=== PATIENT | female | born 1945 | race Caucasian/White ===

== ENCOUNTER 2016-03-29 07:30 | Inpatient (IN) | payer OTHER, MEDICARE ==
[~2016-03-29] VITALS: Ht 160 cm; Wt 51.0 kg
[~2016-03-29 07:30] MED LIST: ATOR10TA23; RISE150T3
[2016-04-09 09:02] VITALS: BMI 20.1
[2016-04-10] VITALS (22 sets, daily range): BP systolic 115–163; BP diastolic 59–82; PULSE 58–86; RESP 12–22; Ht 160 cm; Wt 51.0 kg
[2016-04-10] MEDS ORDERED: CEFAZOLIN 2 GM/50 ML (PMX) 50 ML IVPB SCH (06:30)
[2016-04-10] MEDS ORDERED: CEFAZOLIN 1 GM INJ ONE (07:00)
[2016-04-10] MEDS ORDERED: MAGN400T38 PO (07:15)
[2016-04-10] MEDS ORDERED: ASPI81TA3 PO (07:15)
[2016-04-10] MEDS ORDERED: RISE150T3 PO (07:16)
[2016-04-10] MEDS: LACTATED RINGER'S 1,000 ML IV* SCH ×2 (07:30→14:31)
[2016-04-10] MEDS ORDERED: MIDAZOLAM 1 MG/ML 2 ML INJ ONE (07:43)
[2016-04-10] MEDS ORDERED: FENTAnyl 50 MCG/ML VIAL IV PRN (09:00)
[2016-04-10] MEDS ORDERED: MEPERIDINE 25 MG INJ IV PRN (09:00)
[2016-04-10] MEDS ORDERED: hydrALAzine 20 MG INJ IV PRN (09:00)
[2016-04-10] MEDS ORDERED: DIPHENHYDRAMINE 50 MG INJ IV PRN (09:00)
[2016-04-10] MEDS ORDERED: ONDANSETRON 4 MG INJ IV PRN (09:00)
[2016-04-10] MEDS ORDERED: HYDROmorphONE (0.2 MG/ML) 10ML SYG IV PRN (09:00)
[2016-04-10] MEDS ORDERED: GLYCOPYRROLATE 0.4 MG INJ ONE (09:03)
[2016-04-10] MEDS ORDERED: LIDOCAINE 2% (SDV) 5 ML INJ ONE (09:03)
[2016-04-10] MEDS ORDERED: NEOSTIGMINE 3 MG/3 ML SYRINGE ONE (09:03)
[2016-04-10] MEDS ORDERED: ROCURONIUM 50 MG INJ ONE (09:03)
[2016-04-10] MEDS ORDERED: PROPOFOL 20 ML ONE (09:03)
[2016-04-10] MEDS ORDERED: ONDANSETRON 4 MG INJ ONE (09:04)
[2016-04-10] MEDS: HYDROmorphONE (0.2 MG/ML) 10ML SYG IV PRN ×2 (09:46→09:59)
[2016-04-10] MEDS ORDERED: OXYCODONE/ACETAMINOPHEN (5/325) TAB PO PRN (11:30)
[2016-04-10] MEDS ORDERED: HYDROmorphONE 1 MG/ML SYG IV PRN (11:30)
[2016-04-10] MEDS: IBUPROFEN 600 MG TAB PO SCH ×3 (12:00→23:21)
[2016-04-10] MEDS: LACTATED RINGER'S 1,000 ML IV SCH ×2 (12:11→20:42)
[2016-04-10] MEDS: ONDANSETRON 4 MG INJ IV PRN ×2 (12:11→17:59)
[2016-04-10] MEDS: FAMOTIDINE 20 MG INJ IV SCH ×2 (15:32→15:33)
[2016-04-10] MEDS ORDERED: PANTOPRAZOLE (EC) 40 MG TAB PO ONE (18:30)
[2016-04-10] MEDS ORDERED: ZOLPIDEM 5 MG TAB PO PRN (18:30)
[2016-04-10] MEDS ORDERED: ACETAMINOPHEN 325 MG TAB PO PRN (18:30)
[2016-04-10] MEDS ORDERED: METOCLOPRAMIDE 10 MG INJ IV PRN (18:30)
[2016-04-10] MEDS ORDERED: FAMOTIDINE 20 MG INJ IV SCH (21:00)
--- NOTE | 2016-04-10 21:27 | HPN ---
Date/Time of Note Date/Time of Note DATE: 04/10/16 TIME: 21:27 Interval H&P Admission Note Pt. seen H&P reviewed: No system changes KINGSLEY KAUR MD Apr 10, 2016 21:27
--- NOTE | 2016-04-10 21:31 | HPN ---
Date/Time of Note Date/Time of Note DATE: 04/10/16 TIME: 21:31 Interval H&P Admission Note Pt. seen H&P reviewed: No system changes KINGSLEY KAUR MD Apr 10, 2016 21:31
--- NOTE | 2016-04-10 21:56 | HP ---
Date/Time of Note Date/Time of Note DATE: 04/10/16 TIME: 21:31 Assessment/Plan VTE Prophylaxis VTE Prophylaxis Intervention: ambulation Lines/Catheters IV Catheter Type (from [facility]): Peripheral IV Urinary Cath still in place: Yes Reason Cath still needed: urinary retention Assessment/Plan Chief Complaint/Hosp Course rt ovarian cyst with pelvic discomfort Problems: Assessment/Plan bilateral salphingoophorectomy HPI/ROS Admit Date/Time Admit Date/Time Apr 10, 2016 at 05:32 Hx of Present Illness 71 y.o who has been f/u since nov 2011 when she was seen for lower abdominal discomfort, and u/s was ordered which was done in 03/2012 revealed cyst on rt ovary which was 6cm in longitudinal diameter, repeated u/s showed persistant cyst on rt ovary 6mo after the first u/s and CA125 was wnl patient was periodically f/u with u/s pelvis which was persistant for more than 3yrs but symptom is bearable CA125 nl most recent u/s on feb 2016 size of cyst was increaed to 7.2cm surgical intervention was recommanded due to possibility of future conversion to malignancy or torsion or rupture of cyst. patient was admitted for BSO ROS unremarkable except lower abdominal discomfort Constitutional: improved, no complaints Gastrointestinal: pain PMH/Family/Social Past Medical History Medical History: high cholesterol, other (paroxysmal afbrillation) Past Surgical History Past Surgical Hx: other ( section) Family History Significant Family History: cancer Social History Alcohol Use: none Smoking Status: Never smoker Drug Use: none (m esophageal cancer f, laryngeal ca, b,nasopharyngeal cancer) Exam/Review of Systems Vital Signs Vitals Vital Signs Date Time Temp Pulse Resp B/P Pulse Ox O2 Delivery O2 Flow Rate FiO2 04/10/16 20:03 98.3 71 18 115/60 99 04/10/16 14:45 Nasal Cannula 2.0 Exam Genitourinary - Female: other (ovarian cyst on rt 7,2cmx5.4x5.4) Medications Medications Current Medications Lactated Ringer's (Lr) 1,000 ml @ 100 mls/hr Q10H IV Last administered on 04/10t 20:42; Admin Dose 100 MLS/HR; Start 04/10/16 at 11:05 Oxycodone/ Acetaminophen (Percocet (5/ 325)) 1 tab Q4H PRN PO PAIN LEVEL 6-10; Start 04/10/16 at 11:30 Ondansetron HCl (Zofran Inj) 4 mg Q6H PRN IV NAUSEA AND/OR VOMITING Last administered on 04/10/16 17:59; Admin Dose 4 MG; Start 04/10/16 at 11:30 Hydromorphone HCl (Dilaudid) 0.5 mg Q4H PRN IV PAIN; Start 04/10/16 at 11:30 Ibuprofen (Motrin) 600 mg Q6 PO ; Start 04/10/16 at 12:00 Famotidine (Pepcid Iv) 20 mg BID IV Last administered on 04/10/16 15:32; Admin Dose 20 MG; Start 04/10/16 at 15:30 Simethicone (Mylicon) 80 mg Q6H PRN PO DISTENSION/GAS/BLOATING; Start 04/10/16 at 18:30 Acetaminophen (Tylenol Tab) 650 mg Q6H PRN PO PAIN AND OR ELEVATED TEMP Last administered on 04/10/16 18:39; Admin Dose 650 MG; Start 04/10/16 at 18:30 Metoclopramide HCl (Reglan) 10 mg Q6H PRN IV NAUSEA Last administered on 18:39; Admin Dose 10 MG; Start 04/10/16 at 18:30 Zolpidem Tartrate (Ambien) 5 mg HS PRN PO INSOMNIA; Start 04/10/16 at 18:30 KINGSLEY KAUR MD Apr 10, 2016 21:48
[2016-04-11 00:24] VITALS: BP 126/66; RESP 18
[2016-04-11] MEDS: IBUPROFEN 600 MG TAB PO SCH ×3 (05:33→18:05)
[2016-04-11] MEDS: LACTATED RINGER'S 1,000 ML IV SCH (05:33)
[2016-04-11 05:53] LABS: BASOPHILS % 0.3 % (0.0-2.0); EOSINOPHILS # 0.1 10^3/ul (0.0-0.5); EOSINOPHILS % 1.1 % (0.0-7.0); HEMATOCRIT 30.9 % (37.0-47.0); HEMOGLOBIN 10.7 g/dl (12.0-16.0); LYMPHOCYTES # 1.8 10^3/ul (0.8-2.9); LYMPHOCYTES % 27.1 % (15.0-51.0); MEAN CORPUSCULAR HEMOGLOBIN 31.6 pg (29.0-33.0); MEAN CORPUSCULAR HGB CONC 34.7 g/dl (32.0-37.0); MEAN PLATELET VOLUME 8.2 fl (7.4-10.4); MONOCYTE # 0.7 10^3/ul (0.3-0.9); MONOCYTES % 10.1 % (0.0-11.0); NEUTROPHIL # 4.1 10^3/ul (1.6-7.5); NEUTROPHILS % 61.4 % (39.0-77.0); PLATELET COUNT 221 10^3/UL (140-440); RED BLOOD COUNT 3.39 10^6/ul (4.20-5.40); RED CELL DISTRIBUTION WIDTH 13.9 % (11.5-14.5); UNCORRECTED WBC 6.7 10^3/ul (4.8-10.8); WHITE BLOOD COUNT 6.7 10^3/ul (4.8-10.8)
[2016-04-11 06:11] LABS: CREATININE 0.56 mg/dl (0.44-1.00)
[2016-04-11 06:13] LABS: CONDITION 1
[2016-04-11 07:00] VITALS: BP 121/62; RESP 20
[2016-04-11] MEDS: FAMOTIDINE 20 MG INJ IV SCH (08:48)
--- NOTE | 2016-04-11 11:39 | EN ---
Date/Time of Note Date/Time of Note DATE: 04/11/16 TIME: 11:37 Event Note Surgery Surgery Event Note passing flatus urination well vss afebrile abdomen tympanic wound dry calf neg stable pod#2 d/s home in am KINGSLEY KAUR MD Apr 11, 2016 11:39
--- NOTE | 2016-04-11 12:28 | OPR ---
DATE OF OPERATION: 04/10/2016 PREOPERATIVE DIAGNOSIS: Right ovarian cyst and pelvic pain. POSTOPERATIVE DIAGNOSIS: Right ovarian cyst and pelvic pain, see pathological report. PROCEDURE: Bilateral salpingo-oophorectomy. ANESTHESIA: General. ANESTHESIOLOGIST: Dr. Martin SURGEON: Hero Arias MD [employer] REPA[employer]ER: Dawit Perez MD ESTIMATED BLOOD LOSS: Less than 30 mL. COUNTS: Final sponge count, instrument count, and needle count correct. PROCEDURE: Under appropriate induction of general anesthesia, the patient was placed in the frog po sition. Morgan catheter was introduced into the bladder under sterile condition, repositioned to sup ine. Abdominal wall was prepped and draped in usual aseptic manner. A transverse incision was made along the previous incisional scar. Scar tissue was excised. Incision carried down through the vaughan bcutaneous tissue to the anterior recti fascia which was incised transversely in length of the incis ion. Fascial flap was created by blunt and sharp dissection of tendinous attachment upward and down alvares and 2 rectus muscles were split in midline and peritoneal cavity was entered. The pelvic organ was visualized. Then, uterus normal size, and there is no significant lesion, and the left ovary a nd fallopian tube palpated. Lavon to be very small right side which was deeply located in the right side. The size approximately 8 cm in diameter. The surface was somewhat and no adhesions to the ad jacent organs. The patient was placed in the Trendelenburg position and right ovary and tubes were brought out through the operative field by using Roberto Carlos and intact. So proximal portion of utero-ov olena ligament and fallopian tube was grasped including all the cystic lesions and including the por tion of mesosalpinx which was clamped and cut and doubly ligated with #[address] Ovarian cy st was intact. Surface was smooth, there were no excoriations. No bleeder was noted. The same pro cedure was done on the left side, which ovary was very atrophied, and the fallopian tube appeared to be normal. The proximal portion of the tubo-ovarian ligament, fallopian tube, including the portio n of mesosalpinx was clamped and cut, and the ovaries and tubes were removed from the operative fiel d. The pedicle was closed with 2-0 chromic catgut, #1 chromic catgut, in manner. This was do ubly ligated. A little bleeder was separately closed with a 2-0 chromic catgut with a GI needle. N o bleeder was noted. Irrigation done and no evidence of oozing, and sponge count taken which was co rrect. Parietal peritoneum was closed using 0 chromic catgut in continuous manner, muscle closed wi th 0 chromic catgut in continuous manner. Fascia closed with #1 Vicryl in continuous manner in 2 se gments, subcutaneous tissue irrigated with water. This layer was approximated with 2-0 plain in a c ontinuous manner. Skin closed with 3-0 Monocryl in subcuticular manner. Steri-Strips applied. Pre ssure dressing applied. Estimated blood loss less than 30 mL. Final sponge count and instrument co unt correct. Dictated By: HERO MARTIN/MAKENNA Conf#: [id number] DID#: [id number]
--- NOTE | 2016-04-11 17:58 | PD.PPDC ---
[facility] Discharge Instruction Diagnosis Final Diagnosis: rt ovarian cyst pelvic pain Condition Patient Condition: Stable Diet Diet: Resume Regular Diet Activity/Restrictions Activity: May Shower Restrictions: No Exercising No Lifting Minimize Stair-climbing No Sexual Activity Nothing in the Vagina No [place] No Tampons, douche Wound/Drain Care Instructions Wound/Drain Care Instructions: Wash with soap and water Keep clean and dry Follow-up Follow-up with Physician: 2, Week/Weeks Return to clinic for MOLDER FLOOR Instructions: Fever greater than 101 Chills Worsening abdominal pain Excessive Vaginal Bleeding More than 2 pads per hour Unable to tolerate diet OB Instructions: Breast Tenderness Depression Blurried Vision Headache Surgical Instructions: Incisional Drainage Incisional Redness KINGSLEY KAUR MD Apr 11, 2016 17:58
[2016-04-12] MEDS ORDERED: FAMOTIDINE 20 MG TAB PO SCH (09:00)
== END 2016-04-11 19:05 | disposition home or self-care (01) | DRG 743 ==
LOC: REC 04-10 05:32 → EDBD 04-10 05:32 → MS1 04-10 11:41
PROVIDERS: ADMIT Obstetrics & Gynecology; ATTEND Obstetrics & Gynecology
PROC: 0UT20ZZ Resection of Bilateral Ovaries, Open Approach (ICD-10-PCS; 2016-04-10)
PROC: 0UT70ZZ Resection of Bilateral Fallopian Tubes, Open Approach (ICD-10-PCS; principal; 2016-04-10 07:30)
DX: N83.201 Unspecified ovarian cyst, right side (principal); I27.2 Other secondary pulmonary hypertension; I48.0 Paroxysmal atrial fibrillation; M81.0 Age-related osteoporosis without current pathological fracture; I08.1 Rheumatic disorders of both mitral and tricuspid valves; E78.00 Pure hypercholesterolemia, unspecified; Z79.82 Long term (current) use of aspirin
CPT/HCPCS: 82565; 84520; 85025; 86850; 86900; 86901; 86920; 87086; J0690; J1170; J2250; J2405; J2710; J2765; J3010; J7120